=== PATIENT | male | born 1995 | race Caucasian/White ===

== ENCOUNTER 2023-02-17 17:24 | Emergency (ER) | payer BC ==
[2023-02-17] MEDS ORDERED: ACETAMINOPHEN 325 MG TABLET ONE (18:20)
[2023-02-17] MEDS ORDERED: ONDANSETRON 4 MG (ODT) TAB ONE (18:21)
--- NOTE | 2023-02-17 19:30 | EDPHYS ---
Physician Documentation [facility] Name: Tenzin Kim Age: 27 yrs Sex: Male : 1995 Arrival Date: 02/17/2023 Time: 17:24 Bed 10 Private MD: ED Physician Roshni Carpio HPI: 02/17 18:04 This 27 yrs old Male presents to ER via Ambulatory with complaints of Pain All Over. sp3 18:04 27-year-old male with no past medical history presents with chief complaint low-grade sp3 fever and body aches and feelings of general fatigue and weakness. Patient states symptoms started approximately yesterday evening/early this morning. He denies any intense headache, significant neck pain though he says he has mild stiffness, URI symptoms including cough and congestion, chest pain, shortness of breath, back pain, abdominal pain, nausea, vomiting, diarrhea, rash, known sick contacts, significant travel history, any other signs or symptoms on ROS at this time.. Historical: - Allergies: 17:41 No Known Allergies; aa5 - Home Meds: 17:41 None [Active]; aa5 - PMHx: 17:41 None; aa5 - PSHx: 17:41 Tonsillectomy; aa5 - Immunization history:: Adult Immunizations unknown. - Social history:: Smoking status: Reported history of juuling and/or vaping. ROS: 18:05 Eyes: Negative for injury, pain, redness, and discharge, ENT: Negative for injury, sp3 pain, and discharge, Cardiovascular: Negative for chest pain, palpitations, and edema, Respiratory: Negative for shortness of breath, cough, wheezing, and pleuritic chest pain, Abdomen/GI: Negative for abdominal pain, nausea, vomiting, diarrhea, and constipation, MS/Extremity: Negative for injury and deformity, Skin: Negative for injury, rash, and discoloration, Neuro: Negative for headache, weakness, numbness, tingling, and seizure, Psych: Negative for depression, anxiety, suicide ideation, homicidal ideation, and hallucinations, Allergy/Immunology: Negative for hives, rash, and allergies. 18:05 All other systems are negative. Exam: 18:05 Head/Face: Normocephalic, atraumatic. Eyes: Pupils equal round and reactive to light, sp3 extra-ocular motions intact. Lids and lashes normal. Conjunctiva and sclera are non-icteric and not injected. Cornea within normal limits. Periorbital areas with no swelling, redness, or edema. ENT: Nares patent. No nasal discharge, no septal abnormalities noted. External auditory canals are clear. Oropharynx with no redness, swelling, or masses, exudates, or evidence of obstruction, uvula midline. Mucous membranes moist. Neck: Trachea midline, no thyromegaly or masses palpated, and no cervical lymphadenopathy. Supple, full range of motion without nuchal rigidity, or vertebral point tenderness. No Meningismus. Chest/axilla: Normal chest wall appearance and motion. Nontender with no deformity. No lesions are appreciated. Cardiovascular: Regular rate and rhythm with a normal S1 and S2. No gallops, murmurs, or rubs. Normal PMI, no JVD. No pulse deficits. Respiratory: Lungs have equal breath sounds bilaterally, clear to auscultation and percussion. No rales, rhonchi or wheezes noted. No increased work of breathing, no retractions or nasal flaring. Abdomen/GI: Soft, non-tender, with normal bowel sounds. No distension or tympany. No guarding or rebound. No evidence of tenderness throughout. Back: No spinal tenderness. No costovertebral tenderness. Full range of motion. Skin: Warm, dry with normal turgor. Normal color with no rashes, no lesions, and no evidence of cellulitis. MS/ Extremity: Pulses equal, no cyanosis. Neurovascular intact. Full, normal range of motion. Neuro: Awake and alert, GCS 15, oriented to person, place, time, and situation. Cranial nerves II-XII grossly intact. Motor strength 5/5 in all extremities. Sensory grossly intact. Cerebellar exam normal. Normal gait. Psych: Awake, alert, with orientation to person, place and time. Behavior, mood, and affect are within normal limits. Vital Signs: 17:38 BP 143 / 114; Pulse 93; Resp 20 S; Temp 100.2(O); Pulse Ox 100% on R/A; Weight 82.1 kg aa5 (R); Height 5 ft. 11 in. (R); 18:09 BP 118 / 71; Pulse 93; Resp 16; Temp 98.5(O); Pulse Ox 97% on R/A; Pain 7/10; me1 19:00 BP 114 / 84; Pulse 91; Resp 18; Pulse Ox 100% on R/A; eh3 17:38 Body Mass Index 25.24 (82.10 kg, 180.34 cm) aa5 18:09 Pain Scale: Adult me1 MDM: 18:00 Patient medically screened. sp3 18:06 Data reviewed: vital signs, nurses notes, lab test result(s). ED course: 27-year-old sp3 male with body aches and low-grade fever. Consider influenza, COVID-19, viral syndrome, and to a lesser extent bacterial infection including sinusitis. I do not believe patient has meningitis, sepsis, shock, or any other critical findings. Will obtain swabs for flu, COVID and strep. Tylenol and Zofran will also be given. Disposition based on work-up with likely discharge home with viral syndrome.. 19:28 ED course: All swabs are negative. Patient's fevers resolved and he feels better. We sp3 will diagnose with viral syndrome and safely discharge patient home to PCP follow-up.. 02/17 18:01 Order name: Strep sp3 02/17 18:01 Order name: SARS-COV-2 RT PCR; Complete Time: 19:28 sp3 02/17 18:01 Order name: Flu; Complete Time: 19:28 sp3 02/17 18:58 Order name: Throat Culture EDMS Administered Medications: 18:23 Drug: Acetaminophen PO 650 mg Route: PO; me1 18:23 Drug: Ondansetron PO 4 mg Route: PO; me1 Disposition Summary: 02/17/23 19:29 Discharge Ordered Location: Home sp3 Condition: Stable sp3 Diagnosis - Viral illness, viral syndrome, fever sp3 Followup: sp3 - With: Private Physician - When: Upon discharge from the Emergency Department - Reason: Continuance of care Discharge Instructions: - Discharge Summary Sheet sp3 - Viral Illness, Adult sp3 Forms: - Medication Reconciliation Form sp3 - Thank You Letter sp3 - Antibiotic Education sp3 - Prescription Opioid Use sp3 - Patient Portal Instructions sp3 Signatures: Dispatcher [employer] Haydee Mixon RN RN aa5 Roshni Carpio MD MD sp3 Sunni Ferriera RN RN me1
--- NOTE | 2023-02-17 19:30 | ER ---
Nurse's Notes [facility] Name: Tenzin Kim Age: 27 yrs Sex: Male : 1995 Arrival Date: 02/17/2023 Time: 17:24 Bed 10 Private MD: Diagnosis: Viral illness, viral syndrome, fever Presentation: 02/17 17:38 Chief complaint: Patient states: fatigue, chills, neck pain, and body aching that began aa5 today. Pt also reports nausea. 17:38 Coronavirus screen: muscle pain. Ebola Screen: Patient denies travel to an aa5 Ebola-affected area in the 21 days before illness onset. Initial Sepsis Screen: Does the patient meet any 2 criteria? HR > 90 bpm. Does the patient have a suspected source of infection? Yes:. Risk Assessment: Do you want to hurt yourself or someone else? Patient reports no desire to harm self or others. Onset of symptoms was February 17, 2023. 17:38 Acuity: LEXI 3 aa5 17:38 Method Of Arrival: Ambulatory aa5 Historical: - Allergies: 17:41 No Known Allergies; aa5 - Home Meds: 17:41 None [Active]; aa5 - PMHx: 17:41 None; aa5 - PSHx: 17:41 Tonsillectomy; aa5 - Immunization history:: Adult Immunizations unknown. - Social history:: Smoking status: Reported history of juuling and/or vaping. Screenin:27 [facility] ED Fall Risk Assessment (Adult) Score/Fall Risk Level 0 - 2 = Low Risk. Abuse me1 screen: Denies threats or abuse. Nutritional screening: No deficits noted. Tuberculosis screening: No symptoms or risk factors identified. Assessment: 17:55 General: Appears uncomfortable, well groomed, well developed, well nourished, Behavior me1 is calm, cooperative, appropriate for age, Reports chills for fever for feeling ill for 0-12 hours, fatigue for 0-12 hours. Pain: Complains of pain in posterior neck that radiates to teeth. Pain radiates to teeth Pain currently is 8 out of 10 on a pain scale. Quality of pain is described as sharp, shooting. Neuro: Level of Consciousness is awake, alert, obeys commands, Oriented to person, place, time, situation. Cardiovascular: Capillary refill < 3 seconds is brisk in bilateral fingers Patient's skin is warm and dry. Respiratory: Respiratory effort is even, unlabored, Respiratory pattern is regular, symmetrical. 19:00 Reassessment: Patient appears in no apparent distress at this time. Patient and/or eh3 family updated on plan of care and expected duration. Pain level reassessed. Patient is alert, oriented x 3, equal unlabored respirations, skin warm/dry/pink. Vital Signs: 17:38 BP 143 / 114; Pulse 93; Resp 20 S; Temp 100.2(O); Pulse Ox 100% on R/A; Weight 82.1 kg aa5 (R); Height 5 ft. 11 in. (R); 18:09 BP 118 / 71; Pulse 93; Resp 16; Temp 98.5(O); Pulse Ox 97% on R/A; Pain 7/10; me1 19:00 BP 114 / 84; Pulse 91; Resp 18; Pulse Ox 100% on R/A; eh3 17:38 Body Mass Index 25.24 (82.10 kg, 180.34 cm) aa5 18:09 Pain Scale: Adult [facility] [place] ED Course: 17:34 Patient arrived in ED. am2 17:38 Arm band placed on. aa5 17:41 Triage completed. aa5 17:45 Roshni Carpio MD is Attending Physician. sp3 17:48 Sunni Ferreira, RADHA is Primary Nurse. me1 18:23 Flu Sent. me1 18:23 SARS-COV-2 RT PCR Sent. me1 18:23 Strep Sent. me1 18:27 Patient has correct armband on for positive identification. Fall risk band placed. Bed me1 in low position. Call light in reach. Side rails up X 1. Provided Education on: on POC, verbalized understanding. . 18:27 No provider procedures requiring assistance completed. me1 19:40 Patient did not have IV access during this emergency room visit. 3 Administered Medications: 18:23 Drug: Acetaminophen PO 650 mg Route: PO; me1 18:23 Drug: Ondansetron PO 4 mg Route: PO; me1 Medication: 18:27 VIS not applicable for this client. nd1 Outcome: 19:29 Discharge ordered by . 3 19:40 Discharged to home ambulatory, with family. 3 19:40 Condition: stable 19:40 Discharge instructions given to patient, Instructed on discharge instructions, follow up and referral plans. Demonstrated understanding of instructions, follow-up care. 19:41 Patient left the ED. eh3 Signatures: Haydee Golden, RN RN aa5 Babs Henderson am2 Roshni Carpio MD MD sp3 Kendal Richard RN RN eh3 Sunni Ferreira RN RN nd1
[2023-02-17 19:47] VITALS: TEMP 98.5
[2023-02-17 19:48] VITALS: BP 114/84; O2SAT 100
== END 2023-02-17 19:41 | disposition home or self-care (01) ==
LOC: ER 17:24
DX: B34.9 Viral infection, unspecified (principal); Z20.822 Contact with and (suspected) exposure to COVID-19
CPT/HCPCS: 87070; 87081; 87635; 87804 ×2; 99283; Q0162